=== PATIENT | female | born 1960 | race Native Hawaiian/Other Pacific Islander ===

== ENCOUNTER 2016-12-29 20:49 | Emergency (ER) | payer OTHER ==
--- NOTE | 2016-12-29 21:08 | ED Physician Documentation ---
PD HPI CHEST PAIN - Stated complaint Stated Complaint: CHEST PX - Chief complaint Chief Complaint: Cardiac - History obtained from History obtained from: Patient - History of Present Illness Timing - onset: How many days ago (2) Timing - onset during: Light activity Timing - duration: Days (2) Timing - details: Abrupt onset, Still present. No: Gradual onset Location: Right chest (and right side of neck) Radiation: Neck, Right upper extremity Improved by: No: Rest, Antacids Worsened by: Movement (right shoulder). No: Inspiration Associated symptoms: Feeling faint / dizzy. No: Shortness of air, Diaphoresis, Nausea, General Weakness, Palpitations, Cough Similar symptoms before: No diagnosis (had similar in past with normal labs and ECG.) Recently seen: Not recently seen Review of Systems Constitutional: denies: Fever, Chills Nose: denies: Rhinorrhea / runny nose, Congestion Throat: denies: Sore throat Cardiac: reports: Chest pain / pressure. denies: Palpitations, Pedal edema, Calf pain Respiratory: denies: Dyspnea, Cough, Wheezing GI: denies: Abdominal Pain, Nausea, Vomiting, Diarrhea : denies: Dysuria, Frequency Skin: denies: Rash, Lesions Musculoskeletal: denies: Neck pain, Back pain Neurologic: denies: Generalized weakness, Focal weakness, Numbness, Near syncope Endocrine: denies: Weight loss Immunocompromised: denies: Immunocompromised PD PAST MEDICAL HISTORY - Past Medical History Past Medical History: No Cardiovascular: Hypertension, High cholesterol Respiratory: Asthma Endocrine/Autoimmune: Type 2 diabetes Musculoskeletal: Osteoarthritis, Osteoporosis, Chronic back pain - Past Surgical History Past Surgical History: Yes General: Cholecystectomy - Present Medications Home Medications: Ambulatory Orders Medication Instructions Recorded Confirmed Aspirin [Aspir 81] 81 mg DAILY 11/25/13 11/25/13 Felodipine [Plendil] 5 mg DAILY 11/25/13 11/25/13 Lisinopril 20 mg DAILY 11/25/13 11/25/13 Simvastatin [Zocor] 20 mg DAILY 11/25/13 11/25/13 metFORMIN [Glucophage] 500 mg BID 11/25/13 11/25/13 Hydrocodone/Acetaminophen [[place] 1 each PO Q6H PRN #15 tablet 12/29/16 5-325 Tablet] - Allergies Allergies/Adverse Reactions: Allergies Allergy/AdvReac Type Severity Reaction Status Date / Time No Known Drug Allergies Allergy Verified 12/29/16 20:57 - Social History Does the pt smoke?: Yes Smoking Status: Current every day smoker Does the pt drink ETOH?: No Does the pt have substance abuse?: No - Immunizations Immunizations are current?: Yes - POLST Patient has POLST: No PD ED PE NORMAL - Vitals Vital signs reviewed: Yes - General General: Alert and oriented X 3, No acute distress, Well developed/nourished, Other (moderately obese) - HEENT HEENT: PERRL (nonicteric), Moist mucous membranes, Pharynx benign - Neck Neck: Supple, no meningeal sign, No adenopathy - Cardiac Cardiac: RRR, No murmur - Respiratory Respiratory: Clear bilaterally - Abdomen Abdomen: Soft, Non tender - Back Back: No CVA TTP - Derm Derm: Normal color, Warm and dry, No rash - Extremities Extremities: No deformity, No tenderness to palpate, No edema - Neuro Neuro: Alert and oriented X 3, No motor deficit, No sensory deficit, Normal speech - Psych Psych: Normal mood, Normal affect Results - Vitals Vitals: Oxygen O2 Source Room air - EKG (time done) 21:00 Rate: Rate (enter#) (56) Rhythm: Sinus bradycardia [place]: Normal Intervals: Normal [place] QRS: Normal Ischemia: No: ST elevation c/w ischemia, ST depression, Hyperacute T waves Compare to prior EKG: Old EKG unavailable - Labs Labs: Laboratory Tests 12/29/16 12/29/16 12/29/16 21:57 21:57 21:57 WBC 10.9 H RBC 5.17 Hgb 15.2 Hct 46.0 MCV 89.0 MCH 29.4 MCHC 33.0 RDW 13.4 Plt Count 320 MPV 8.0 Neut # 6.8 H Lymph # 3.0 [place] # 0.8 Eos # 0.3 Baso # 0.1 Absolute Nucleated RBC 0.00 Nucleated RBCs 0.0 Sodium 136 Potassium 4.1 Chloride 100 L Carbon Dioxide 27 Anion Gap 9.0 BUN 12 Creatinine 0.7 Estimated GFR (MDRD) 87 L Glucose 128 H Calcium 9.6 Total Bilirubin 1.0 AST 71 H ALT 79 H Alkaline Phosphatase 76 Troponin I < 0.04 B-Natriuretic Peptide Total Protein 8.0 Albumin 3.9 Globulin 4.1 Albumin/Globulin Ratio 1.0 Lipase 32 06/28/17 21:57 WBC RBC Hgb Hct MCV MCH MCHC RDW Plt Count MPV Neut # Lymph # [place] # Eos # Baso # Absolute Nucleated RBC Nucleated RBCs Sodium Potassium Chloride Carbon Dioxide Anion Gap BUN Creatinine Estimated GFR (MDRD) Glucose Calcium Total Bilirubin AST ALT Alkaline Phosphatase Troponin I B-Natriuretic Peptide 16 Total Protein Albumin Globulin Albumin/Globulin Ratio Lipase - Rads (name of study) chest Radiology: Prelim report reviewed, EMP read contemporaneously (normal) PD MEDICAL DECISION MAKING - ED course Complexity details: reviewed results, considered differential (no signs of signficant cause at this time. ), d/w patient Departure - Departure Disposition: 01 Home, Self Care Clinical Impression: Chest pain Qualifiers: Chest pain type: precordial pain Qualified Code(s): R07.2 - Precordial pain Condition: Stable Record reviewed to determine appropriate education?: Yes Instructions: ED Chest Pain NonCardiac Follow-Up: KANDIS Belcher [Provider Group] Prescriptions: Hydrocodone/Acetaminophen [[place] 5-325 Tablet] 1 each PO Q6H PRN #15 tablet PRN Reason: Pain Comments: Your tests do not show signs of serious cause, such as heart attack, heart failure, pneumonia, collapsed lung, etc. It has sounds of being esophagitis, given the discomfort swallowing, but could be muscular on that side of the chest /neck. Continue your Ranitidine twice daily. Antacids such as Maalox or Mylants periodically if it helps. Use Tylenol or hydrocodone as needed for pains. recheck if worsening or other symptoms, or if not improved over the next couple of days. Discharge Date/Time: 12/29/16 23:17
[2016-12-29] MEDS ORDERED: MAG HYDROX/AL HYDROX/SIMETH 30 ML UDC PO STA (21:45)
[2016-12-29] MEDS ORDERED: LIDOCAINE VISCOUS 2% 15 ML UDC MM STA (21:45)
[2016-12-29] MEDS ORDERED: HYDROcod/ACETAM 5/325 MG TABLET PO STA ×2 (21:46→22:55)
[2016-12-29] MEDS ORDERED: MAG HYDROX/AL HYDROX/SIMETH 30 ML UDC ONE (21:47)
[2016-12-29] MEDS ORDERED: HYDROcod/ACETAM 5/325 MG TABLET ONE ×2 (21:47→23:03)
[2016-12-29] MEDS ORDERED: LIDOCAINE VISCOUS 2% 15 ML UDC MM ONE (21:47)
[2016-12-29 22:06] LABS: BASOPHILS # (AUTO) 0.1 10^3/uL (0.0-0.1); BASOPHILS % (AUTO) 0.7 %; EOSINOPHILS # (AUTO) 0.3 10^3/uL (0.0-0.7); EOSINOPHILS % (AUTO) 3.1 %; HGB - HEMOGLOBIN 15.2 g/dL (12.0-16.0); LYMPHOCYTES % (AUTO) 27.2 %; MEAN CORPUSCULAR HEMOGLOBIN 29.4 pg (27.0-31.0); MONOCYTES # (AUTO) 0.8 10^3/uL (0.0-1.0); MONOCYTES % (AUTO) 7.1 %; NEUTROPHILS # (AUTO) 6.8 10^3/uL (1.5-6.6); NEUTROPHILS % (AUTO) 61.9 %; RED BLOOD COUNT 5.17 10^6/uL (4.20-5.40); RED CELL DISTRIBUTION WIDTH 13.4 % (12.0-15.0); UNCORRECTED WHITE BLOOD COUNT 10.9 x10^3/uL; WHITE BLOOD COUNT 10.9 x10^3/uL (4.8-10.8)
[2016-12-29 22:16] LABS: CALCIUM 9.6 mg/dL (8.5-10.3); CREATININE 0.7 mg/dL (0.4-1.0); POTASSIUM 4.1 mmol/L (3.5-5.0)
[2016-12-29] MEDS ORDERED: HYDROcod/ACET 5/325 Prepack 6 PO ONE ×2 (22:55→23:04)
--- NOTE | 2016-12-29 22:56 | XRAY Preliminary Report ---
Exam: XR Chest 2 View PA/LAT IMPRESSION: No acute intrathoracic plain film abnormality. [facility] SITE ID: [id number]
--- NOTE | 2016-12-29 22:58 | XRAY Report ---
EXAM: CHEST RADIOGRAPHY EXAM DATE: 12/29/2016 10:20 PM. CLINICAL HISTORY: Substernal chest pain for 2 days. COMPARISON: 11/25/2013. TECHNIQUE: 2 views. FINDINGS: Lungs/Pleura: No focal opacities evident. No pleural effusion. No pneumothorax. Normal volumes. Mediastinum: Borderline cardiomegaly. Other: None. IMPRESSION: No acute intrathoracic plain film abnormality. [facility] Referring Provider Line: [phone] SITE ID: [id number]
[2016-12-29 23:07] VITALS: BP 127/89
== END 2016-12-29 23:17 | disposition home or self-care (01) ==
LOC: ED 20:49
DX: R07.2 Precordial pain (principal); R13.10 Dysphagia, unspecified; I10 Essential (primary) hypertension; E11.9 Type 2 diabetes mellitus without complications; E78.00 Pure hypercholesterolemia, unspecified; F17.200 Nicotine dependence, unspecified, uncomplicated; R00.1 Bradycardia, unspecified; Z79.84 Long term (current) use of oral hypoglycemic drugs; Z79.82 Long term (current) use of aspirin
CPT/HCPCS: 36415; 71020; 80053; 83690; 83880; 84484; 85025; 93005; 99283; 99285; A9270

== ENCOUNTER 2017-09-30 08:20 | Emergency (ER) | payer OTHER ==
[2017-09-30 08:33] VITALS: BP 133/83
[2017-09-30] MEDS ORDERED: LIDOCAINE 1%-EPI 1:100000 20 ML MDV SUBQ STA (08:36)
[2017-09-30] MEDS ORDERED: cephALEXin 250 MG CAPSULE PO STA (08:37)
--- NOTE | 2017-09-30 09:03 | ED Physician Documentation ---
PD HPI SKIN - Stated complaint Stated Complaint: BOIL - Chief complaint Chief Complaint: Wound - History obtained from History obtained from: Patient - History of Present Illness Timing - onset: How many weeks ago (1) Timing - details: Gradual onset Location: Abdomen (Left lower groin crease.) Quality / character: Painful, Discolored, Swelling Similar symptoms before: Diagnosis (Similar symptoms 1 year ago, when an abscess spontaneously drained.) - Additional information Additional information: The patient is a 56-year-old female who presents with pain and swelling in the left lower abdomen in the groin crease. Her symptoms started one week ago and has been getting progressively worse. She denies fever, vomiting, or dysuria. She has a history of similar symptoms 1 year ago when an abscess spontaneously drained. Past medical history is significant for diabetes for which she takes metformin. She has no history of MRSA. Review of Systems Constitutional: denies: Fever Nose: denies: Congestion Cardiac: denies: Chest pain / pressure Respiratory: denies: Dyspnea, Cough GI: reports: Nausea. denies: Abdominal Pain, Vomiting : denies: Dysuria Skin: reports: Other (Abscess left groin.) Neurologic: denies: Headache PD PAST MEDICAL HISTORY - Past Medical History Cardiovascular: Hypertension, High cholesterol Respiratory: Asthma Endocrine/Autoimmune: Type 2 diabetes Musculoskeletal: Osteoarthritis, Osteoporosis, Chronic back pain - Past Surgical History Past Surgical History: Yes General: Cholecystectomy - Present Medications Home Medications: Ambulatory Orders Medication Instructions Recorded Confirmed Aspirin [Aspir 81] 81 mg DAILY 11/25/13 11/25/13 Felodipine [Plendil] 5 mg DAILY 11/25/13 11/25/13 Lisinopril 20 mg DAILY 11/25/13 11/25/13 Simvastatin [Zocor] 20 mg DAILY 11/25/13 11/25/13 metFORMIN [Glucophage] 500 mg BID 11/25/13 11/25/13 Hydrocodone/Acetaminophen [[place] 1 each PO Q6H PRN #15 tablet 12/29/16 5-325 Tablet] cephALEXin [Cephalexin] 500 mg PO TID #15 tablet 09/30/17 - Allergies Allergies/Adverse Reactions: Allergies Allergy/AdvReac Type Severity Reaction Status Date / Time No Known Drug Allergies Allergy Verified 12/29/16 20:57 - Social History Does the pt smoke?: Yes Smoking Status: Current every day smoker Does the pt drink ETOH?: No Does the pt have substance abuse?: No - Immunizations Immunizations are current?: Yes - POLST Patient has POLST: No PD ED PE NORMAL - Vitals Vital signs reviewed: Yes (Borderline hypertension initially.) - General General: Alert and oriented X 3, Other (Morbidly obese.) - HEENT HEENT: Atraumatic - Neck Neck: No adenopathy, No JVD - Cardiac Cardiac: RRR - Respiratory Respiratory: No respiratory distress, Clear bilaterally - Abdomen Abdomen: Soft, Non tender - Back Back: No CVA TTP - Derm Derm: Other (There is a large abscess noted in the left groin crease. It is fluctuant, and there is overlying erythema.) - Extremities Extremities: No tenderness to palpate - Neuro Neuro: Alert and oriented X 3, No motor deficit, Normal speech Results - Vitals Vitals: Oxygen O2 Source Room air - Labs Labs: Microbiology 09/30/17 08:55 Wound Culture - Preliminary Abscess NORMAL Skin Radha present in culture Laboratory Tests 09/30/17 08:45 POC Whole Bld Glucose 209 H Procedures - Abscess I&D (location) left lower abdominal/groin crease Preparation: Alcohol, Lidocaine 1%, With epi Incision: Incised with scalpel, Purulent drainage, Loculations broken, Irrigated , Packed, Culture obtained Other: Pt tolerated well, Dressing applied, Antibiotic prescribed PD MEDICAL DECISION MAKING - ED course Complexity details: reviewed results, re-evaluated patient, considered differential, d/w patient, d/w family ED course: The patient's presentation is significant for a large abscess in the left groin. There is overlying cellulitis. Her presentation does not suggest sepsis. Fingerstick blood sugar reveals hyperglycemia of 209. Treatment in the emergency department included incision and drainage after topical anesthesia using 1% lidocaine with epinephrine. In excess of 30 mL of pus was drained from the abscess. Culture swab was sent to the lab for microbiology. The abscess was irrigated and packed with Iodoform gauze. Cephalexin 500 mg administered orally. She is being discharged with prescription for cephalexin. I discussed with her and her expected course of illness, antibiotic treatment and outpatient follow-up, including recheck of the abscess in 2 days, as well as potentially worrisome signs or symptoms that should prompt sooner reevaluation in the emergency department. Departure - Departure Disposition: 01 Home, Self Care Clinical Impression: Abscess Diabetes mellitus with hyperglycemia Qualifiers: Diabetes mellitus type: type 2 Diabetes mellitus fpc insulin use: without fpc use Qualified Code(s): E11.65 - Type 2 diabetes mellitus with hyperglycemia Condition: Stable Instructions: ED Abscess IandD Follow-Up: RONALD CARRINGTON PA-C [Primary Care Provider] - Prescriptions: cephALEXin [Cephalexin] 500 mg PO TID #15 tablet Comments: Take cephalexin 3 times daily as prescribed. Change the dressing over the abscess site is often as necessary. Follow up with your primary physician or return to the emergency department in 3 days for recheck. Return to the emergency department if you develop increasing redness or swelling , fever with shaking chills, or otherwise worsening symptoms. Discharge Date/Time: 09/30/17 09:19
== END 2017-09-30 09:19 | disposition home or self-care (01) ==
LOC: ED 08:20
DX: L02.214 Cutaneous abscess of groin (principal); L03.314 Cellulitis of groin; E11.65 Type 2 diabetes mellitus with hyperglycemia; I10 Essential (primary) hypertension; E78.00 Pure hypercholesterolemia, unspecified; F17.200 Nicotine dependence, unspecified, uncomplicated; Z79.82 Long term (current) use of aspirin; Z79.84 Long term (current) use of oral hypoglycemic drugs
CPT/HCPCS: 10060; 87070; 87205; 99283; A9270

== ENCOUNTER 2018-01-25 09:58 | Emergency (ER) | payer OTHER ==
[2018-01-25 10:32] LABS: BASOPHILS % (AUTO) 0.4 %; EOSINOPHILS # (AUTO) 0.3 10^3/uL (0.0-0.7); EOSINOPHILS % (AUTO) 3.5 %; HGB - HEMOGLOBIN 14.9 g/dL (12.0-16.0); LYMPHOCYTES # (AUTO) 3.1 10^3/uL (1.5-3.5); MEAN CORPUSCULAR HEMOGLOBIN 30.1 pg (27.0-31.0); MEAN CORPUSCULAR HGB CONC 33.8 g/dL (32.0-36.0); MEAN CORPUSCULAR VOLUME 89.2 fL (81.0-99.0); MEAN PLATELET VOLUME 7.4 fL (7.9-10.8); MONOCYTES # (AUTO) 0.7 10^3/uL (0.0-1.0); MONOCYTES % (AUTO) 7.8 %; NEUTROPHILS # (AUTO) 4.9 10^3/uL (1.5-6.6); NEUTROPHILS % (AUTO) 54.3 %; PLT - PLATELET COUNT 332 10^3/uL (130-450); RED BLOOD COUNT 4.94 10^6/uL (4.20-5.40); RED CELL DISTRIBUTION WIDTH 13.5 % (12.0-15.0); WHITE BLOOD COUNT 9.1 x10^3/uL (4.8-10.8)
--- NOTE | 2018-01-25 10:40 | ED Physician Documentation ---
History of Present Illness - Stated complaint Stated Complaint: CHEST PAIN - Chief complaint Chief Complaint: General - Additonal information Additional information: hx from pt 57 f pmhx HTN HLD BM smoker to ED with chest pain X 5 days constant worse with moving no relieving factors mod severity quality - gripping from l ant chest to shoulder and neck no SOA but hurts to breath + cough no abd pain no leg swelling no travel no sick contacts Review of Systems Constitutional: denies: Fever, Chills Cardiac: reports: Chest pain / pressure Respiratory: reports: Cough. denies: Dyspnea GI: denies: Abdominal Pain, Nausea, Vomiting Musculoskeletal: denies: Extremity pain, Extremity swelling Endocrine: denies: Easy bruising / bleeding Immunocompromised: denies: Immunocompromised PD PAST MEDICAL HISTORY - Past Medical History Cardiovascular: Hypertension, High cholesterol Respiratory: Asthma Endocrine/Autoimmune: Type 2 diabetes Musculoskeletal: Osteoarthritis, Osteoporosis, Chronic back pain - Past Surgical History Past Surgical History: Yes General: Cholecystectomy - Present Medications Home Medications: Ambulatory Orders Medication Instructions Recorded Confirmed Aspirin [Aspir 81] 81 mg DAILY 11/25/13 11/25/13 Felodipine [Plendil] 5 mg DAILY 11/25/13 11/25/13 Lisinopril 20 mg DAILY 11/25/13 11/25/13 Simvastatin [Zocor] 20 mg DAILY 11/25/13 11/25/13 metFORMIN [Glucophage] 500 mg BID 11/25/13 11/25/13 Hydrocodone/Acetaminophen [[place] 1 each PO Q6H PRN #15 tablet 12/29/16 5-325 Tablet] cephALEXin [Cephalexin] 500 mg PO TID #15 tablet 09/30/17 Ibuprofen [Motrin] 400 mg PO Q6H PRN #30 tablet 01/25/18 Sucralfate 1 gm PO ACHS #120 tablet 01/25/18 raNITIdine [Zantac] 150 mg PO BID #60 tablet 01/25/18 - Allergies Allergies/Adverse Reactions: Allergies Allergy/AdvReac Type Severity Reaction Status Date / Time No Known Drug Allergies Allergy Verified 12/29/16 20:57 - Social History Does the pt smoke?: Yes Smoking Status: Current every day smoker Does the pt drink ETOH?: No Does the pt have substance abuse?: No - Immunizations Immunizations are current?: Yes - POLST Patient has POLST: No PD ED PE NORMAL - Vitals Vital signs reviewed: Yes - Neck Neck: Supple, no meningeal sign - Cardiac Cardiac: RRR - Respiratory Respiratory: No respiratory distress, Clear bilaterally - Abdomen Abdomen: Soft, Non tender - Derm Derm: Normal color - Extremities Extremities: No tenderness to palpate, Normal ROM s pain, No edema, No calf tenderness / cord - Neuro Neuro: Alert and oriented X 3 Results - Vitals Vitals: Vital Signs - 24 hr 01/25/18 01/25/18 01/25/18 10:18 11:21 12:54 Temperature 36.4 C L Heart Rate 76 81 70 Respiratory 14 23 20 Rate Blood Pressure 141/90 H 109/96 H 131/83 H O2 Saturation 97 97 98 01/25/18 14:42 Temperature 36.9 C Heart Rate 67 Respiratory 17 Rate Blood Pressure 110/75 O2 Saturation 95 Oxygen O2 Source Room air - EKG (time done) 1006 Rate: Rate (enter#) (75) Rhythm: NSR [place]: Normal Intervals: Normal [place] QRS: Normal Ischemia: Normal ST segments - Labs Labs: Laboratory Tests 01/25/18 01/25/18 01/25/18 10:20 10:20 10:20 WBC 9.1 RBC 4.94 Hgb 14.9 Hct 44.0 MCV 89.2 MCH 30.1 MCHC 33.8 RDW 13.5 Plt Count 332 MPV 7.4 L Neut # (Auto) 4.9 Lymph # (Auto) 3.1 [place] # (Auto) 0.7 Eos # (Auto) 0.3 Baso # (Auto) 0.0 Absolute Nucleated RBC 0.00 Nucleated RBC % 0.0 Sodium 135 Potassium 3.9 Chloride 100 L Carbon Dioxide 26 Anion Gap 9.0 BUN 14 Creatinine 0.7 Estimated GFR (MDRD) 86 L Glucose 156 H Calcium 9.1 Total Bilirubin 1.2 H AST 34 ALT 39 Alkaline Phosphatase 62 Troponin I < 0.04 Total Protein 7.5 Albumin 3.8 Globulin 3.7 Albumin/Globulin Ratio 1.0 Lipase 32 - Rads (name of study) CTA chest Radiology: See rad report (normal, no PE) PD MEDICAL DECISION MAKING - ED course ED course: 57 female with multiple risk factors for CAD to ED with 5 solid days of CP somewhat motion and resp related EKG and trop neg after 5 days essentially rules out ACS CTA neg for PE aneursym dissection infection as well despite high risk pt all work up is reassuring and feelt emergent causes of her CP have been ruled out after extensive MSE and she is safe for dc home bili noted but pts pain is left sided and she has no abd TTP - Sepsis Event Vital Signs: Vital Signs - 24 hr 01/25/18 01/25/18 01/25/18 10:18 11:21 12:54 Temperature 36.4 C L Heart Rate 76 81 70 Respiratory 14 23 20 Rate Blood Pressure 141/90 H 109/96 H 131/83 H O2 Saturation 97 97 98 01/25/18 14:42 Temperature 36.9 C Heart Rate 67 Respiratory 17 Rate Blood Pressure 110/75 O2 Saturation 95 Oxygen O2 Source Room air Departure - Departure Disposition: 01 Home, Self Care Clinical Impression: Chest pain Qualifiers: Chest pain type: unspecified Qualified Code(s): R07.9 - Chest pain, unspecified Condition: Good Instructions: ED Chest Pain Atypical Unkn Cause Follow-Up: RONALD CARRINGTON PA-C [Primary Care Provider] - Prescriptions: Ibuprofen [Motrin] 400 mg PO Q6H PRN #30 tablet PRN Reason: Pain raNITIdine [Zantac] 150 mg PO BID #60 tablet Sucralfate 1 gm PO ACHS #120 tablet Comments: Do not take metformin for 3 days after getting the IV contrast for CT All of the tests came back reassuring The EKG and labs do not suggest a heart attack - after 5 days of pain the lab test should be very accurate The xray and subsequent CT scan did not show any blood clots in your lung, no aneurysm or tear of the aorta, no infection or tumors, no collapse of the lung. I am not sure what is causing the chest pain But I feel we have ruled out the dangerous possible causes such as a heart attack or aneurysm or blood clot. It could be muscular in the chest wall, or acid reflux causing esophagus spasm among other possibilities I am not saying nothing is wrong But I think it is safe for you to go home I recommend motrin and tylenol for pain and a trial of zantac and carafate in case it is acid reflux. please follow up with your PMD for a recheck. Even though the heart tests in the ER are reassuring today, you have many many risk factors for heart disease - you need to stop smoking and should get a heart stress test which your PMD can arrange
[2018-01-25 10:54] LABS: ALBUMIN 3.8 g/dL (3.2-5.5); BILIRUBIN,TOTAL 1.2 mg/dL (0.2-1.0); CALCIUM 9.1 mg/dL (8.5-10.3); CREATININE 0.7 mg/dL (0.4-1.0); TOTAL PROTEIN 7.5 g/dL (6.7-8.2)
--- NOTE | 2018-01-25 11:06 | XRAY Report ---
Procedure Date: 01/25/2018 Accession Number: [id number] / [id number] Procedure: XR - Chest 2 View X-Ray CPT Code: 62858 FULL RESULT: EXAM: CHEST RADIOGRAPHY EXAM DATE: 01/25/2018 10:57 AM. CLINICAL HISTORY: Chest pain. COMPARISON: None. TECHNIQUE: 2 views. FINDINGS: Lungs/Pleura: No focal opacities evident. No pleural effusion. No pneumothorax. Normal volumes. Mediastinum: Heart and mediastinal contours are unremarkable. Other: None. IMPRESSION: Normal 2-view chest radiography. [facility]
[2018-01-25] MEDS ORDERED: ONDANSETRON 4 MG/2 ML VIAL IVP STA (13:52)
[2018-01-25] MEDS ORDERED: MORPHINE 2 MG/ML SYRINGE IVP STA (13:52)
[2018-01-25] MEDS ORDERED: IOPAMIDOL-300 100 ML VIAL ONE (14:12)
[2018-01-25] MEDS ORDERED: IOPAMIDOL-300 100 ML VIAL IVP ONE (14:28)
[2018-01-25 14:42] VITALS: BP 110/75
--- NOTE | 2018-01-25 14:46 | CT Report ---
Procedure Date: 01/25/2018 Accession Number: [id number] / [id number] Procedure: CT - Chest Angio (PE) CPT Code: FULL RESULT: EXAM: CT ANGIOGRAM CHEST. EXAM DATE: 01/25/2018 02:27 PM. CLINICAL HISTORY: Chest pain. Shortness of breath. Smoker. COMPARISON: None. TECHNIQUE: Routine helical imaging was performed through the chest in the pulmonary arterial phase. IV Contrast: ISOVUE 300 80 mL. Reconstructions: Coronal 3-D MIP reconstructions.Sagittal and coronal. In accordance with CT protocol optimization, one or more of the following dose reduction techniques were utilized for this exam: automated exposure control, adjustment of mA and/or KV based on patient size, or use of iterative reconstructive technique. FINDINGS: Pulmonary Arteries: Diagnostic quality: Adequate through the segmental arteries. No evidence for acute or chronic pulmonary emboli. RV/LV is within normal limits. There is no interventricular septal bowing. There is no reflux of contrast material in the IVC. Lungs/Pleura: No consolidation, nodules, or edema. No effusions or pneumothorax. Mediastinum: Normal. No cardiac enlargement or adenopathy. Thoracic Aorta: Unremarkable. Upper Abdomen: Unremarkable. Other: None. IMPRESSION: Normal pulmonary CT angiogram. No pulmonary emboli. [facility]
== END 2018-01-25 16:09 | disposition home or self-care (01) ==
LOC: ED 09:58
DX: R07.9 Chest pain, unspecified (principal); I10 Essential (primary) hypertension; E11.9 Type 2 diabetes mellitus without complications; Z79.84 Long term (current) use of oral hypoglycemic drugs; Z79.82 Long term (current) use of aspirin; F17.200 Nicotine dependence, unspecified, uncomplicated
CPT/HCPCS: 36415; 71046; 71275; 80053; 83690; 84484; 85025; 93005; 96374; 96375; 99283; J2270; Q9967

== ENCOUNTER 2021-08-08 11:33 | Emergency (ER) | payer OTHER ==
--- NOTE | 2021-08-08 11:48 | ED Physician Documentation ---
History of Present Illness - Stated complaint Stated Complaint: DIZZY - Additonal information Additional information: 60-year-old female who carries a history of morbid obesity, hypertension and diabetes presents the emergency department for evaluation of dizziness. She reports that she woke up yesterday morning and had sensation of dizziness somewhat like the room spinning but not exactly. It lasted a few minutes and then went away. But it occurred again later in the afternoon, this time lasting a few seconds. She reports nausea, like she was car sick. She is also describing some mild left upper chest discomfort as well as a posterior headache. Some nausea but no vomiting. No diaphoresis. No radiation of her pain. Patient is short of breath with ambulation but states that this is not usual for her. She is not hypoxic. No cough or fevers. She is morbidly obese. Social: Daily tobacco user Meds: Simvastatin felodipine, losartan, daily aspirin, Metformin, Trulicity Review of Systems Constitutional: denies: Fever, Chills Eyes: denies: Loss of vision Ears: reports: Reviewed and negative Nose: reports: Reviewed and negative Throat: reports: Reviewed and negative Cardiac: reports: Chest pain / pressure. denies: Palpitations, Pedal edema, Calf pain Respiratory: reports: Dyspnea. denies: Cough, Hemoptysis, Wheezing GI: reports: Reviewed and negative : reports: Reviewed and negative Skin: reports: Reviewed and negative Musculoskeletal: denies: Neck pain, Back pain, Extremity pain Neurologic: reports: Headache, Other (dizzy). denies: Generalized weakness, Focal weakness, Syncope, Seizure, Confused Psychiatric: reports: Reviewed and negative PD PAST MEDICAL HISTORY - Past Medical History Cardiovascular: Hypertension, High cholesterol Respiratory: Asthma Endocrine/Autoimmune: Type 2 diabetes Musculoskeletal: Osteoarthritis, Osteoporosis, Chronic back pain - Past Surgical History Past Surgical History: Yes General: Cholecystectomy - Present Medications Home Medications: Ambulatory Orders Medication Instructions Recorded Confirmed Aspirin [Aspir 81] 81 mg DAILY 11/25/13 11/25/13 Felodipine [Plendil] 5 mg DAILY 11/25/13 11/25/13 Lisinopril 20 mg DAILY 11/25/13 11/25/13 Simvastatin [Zocor] 20 mg DAILY 11/25/13 11/25/13 metFORMIN [Glucophage] 500 mg BID 11/25/13 11/25/13 Hydrocodone/Acetaminophen [[place] 1 each PO Q6H PRN #15 tablet 12/29/16 5-325 Tablet] cephALEXin [Cephalexin] 500 mg PO TID #15 tablet 09/30/17 Ibuprofen [Motrin] 400 mg PO Q6H PRN #30 tablet 01/25/18 Sucralfate 1 gm PO ACHS #120 tablet 01/25/18 raNITIdine [Zantac] 150 mg PO BID #60 tablet 01/25/18 Meclizine [Antivert] 25 mg PO Q6H #30 tablet 08/08/21 - Allergies Allergies/Adverse Reactions: Allergies Allergy/AdvReac Type Severity Reaction Status Date / Time No Known Drug Allergies Allergy Verified 12/29/16 20:57 - Social History Does the pt smoke?: Yes Smoking Status: Current every day smoker Does the pt drink ETOH?: No Does the pt have substance abuse?: No - Immunizations Immunizations are current?: Yes - POLST Patient has POLST: No PD ED PE EXPANDED - General General: Alert, Well developed/nourished, Other (morbidely obese) - HEENT HEENT: Atraumatic, PERRL, Ears normal - Eyes Eyes: PERRL, EOMI - Neck Neck: Supple w/out meningeal sx. No: Adenopathy - Cardiac Cardiac: Regular Rate, Radial strong equal, Pedal strong equal, Cap refill < 2 sec. No: Murmur Present - Respiratory Respiratory: Clear to ausultation carlos, Other (Tachypnea and mild shortness of breath after ambulation which resolves with rest.). No: Distress - Abdomen Abdomen: Normal Bowel sounds. No: Tender to palpation - Derm Derm: Normal color, Warm and dry. No: Rash - Extremities Extremities: Normal, Pedal Pulses Present. No: Deformity, Tenderness, Swelling, Pedal edema bilateral - Neuro Neuro: Alert and Oriented X 3, CNII-XII intact, Cerebellar nl, Normal gait, Normal finger nose, Normal speech - GCS Eye Opening: Spontaneous Motor: Obeys Commands Verbal: Oriented Total: 15 Results - Vitals Vitals: Vital Signs - 24 hr 08/08/21 08/08/21 08/08/21 11:40 12:11 12:31 Temperature 37.2 C Heart Rate 94 84 Heart Rate [ 85 Supine] Respiratory 22 20 Rate Blood Pressure 148/98 H 149/78 H Blood Pressure 133/87 H [Supine] O2 Saturation 98 97 Oxygen O2 Source Room air - EKG (time done) 1146 Rate: Rate (enter#) (90) Rhythm: NSR [place]: Normal Intervals: Normal ND. No: Prolonged QT QRS: Normal Ischemia: Normal ST segments Compare to prior EKG: Old EKG unavailable Computer interpretation: Agree with computer - Labs Labs: Laboratory Tests 08/08/21 08/08/21 08/08/21 11:53 11:53 11:53 WBC 8.9 RBC 5.10 Hgb 15.1 Hct 45.5 MCV 89.2 MCH 29.6 MCHC 33.2 RDW 13.0 Plt Count 325 MPV 9.4 Neut # (Auto) 5.4 Lymph # (Auto) 2.8 [place] # (Auto) 0.4 Eos # (Auto) 0.2 Baso # (Auto) 0.0 Absolute Nucleated RBC 0.00 Nucleated RBC % 0.0 PT 12.6 INR 1.1 Sodium 136 Potassium 4.0 Chloride 99 L Carbon Dioxide 26 Anion Gap 11.0 BUN 17 Creatinine 0.8 Estimated GFR (MDRD) 73 L Glucose 247 H Calcium 9.0 Total Bilirubin 1.4 H AST 46 H ALT 52 Alkaline Phosphatase 70 Troponin I High Sens Total Protein 7.4 Albumin 4.0 Globulin 3.4 Albumin/Globulin Ratio 1.2 Lipase 47 08/08/21 11:53 WBC RBC Hgb Hct MCV MCH MCHC RDW Plt Count MPV Neut # (Auto) Lymph # (Auto) [place] # (Auto) Eos # (Auto) Baso # (Auto) Absolute Nucleated RBC Nucleated RBC % PT INR Sodium Potassium Chloride Carbon Dioxide Anion Gap BUN Creatinine Estimated GFR (MDRD) Glucose Calcium Total Bilirubin AST ALT Alkaline Phosphatase Troponin I High Sens 3.4 Total Protein Albumin Globulin Albumin/Globulin Ratio Lipase - Rads (name of study) CXR Radiology: EMP read contemporaneously (No acute cardiopulmonary process.) PD MEDICAL DECISION MAKING - ED course Complexity details: reviewed results, re-evaluated patient, considered differential, d/w patient ED course: 6-year-old female who carries a history of morbid obesity, hypertension and poorly controlled diabetes who is an active daily tabacco user, presents the emergency department for evaluation of left-sided chest discomfort as well as some very intermittent dizziness and vertigo that she noticed over the last 48 hours. Sometimes it was with position changes. It lasted just a few seconds to a few minutes. Describes a sensation of like being carsick. She on presentation has a nonfocal neurological exam. Normal cerebellar exam and gait. Her screening EKG is nonischemic and essentially unchanged from 2018. Screening labs were unremarkable with the exception of a blood glucose of 247. High-sensitivity troponin was negative. Chest x-ray without acute focal opacity findings of congestive heart failure cardiomegaly. Orthostatics were negative. Clinically the patient does not appear to be having ACS/NSTEMI, CVA. I did spend some time at the bedside discussing with her risk factors for coronary artery disease and CVA. We discussed that moving forward moderate weight loss and tobacco cessation is critical as well is improved blood glucose management. Patient would likely benefit from an outpatient echocardiogram and stress test for further evaluation of her symptoms. Emergent return precautions were discussed for concerns of chest pain, sudden severe shortness of air, leg swelling fainting episodes or focal neurological deficits. Departure - Departure Disposition: 01 Home, Self Care Clinical Impression: Dizzy spells, Chest discomfort, Poorly controlled diabetes mellitus Condition: Stable Record reviewed to determine appropriate education?: Yes Instructions: ED Dizziness UKO Prescriptions: Meclizine [Antivert] 25 mg PO Q6H #30 tablet Comments: Concha you are seen in the emergency department today for dizziness as well as some chest discomfort. You do have some moderate risk factors for heart disease and stroke that include obesity, poorly controlled diabetes, hypertension and tobacco use. However your screening chest x-ray, EKG and labs today are all essentially normal with the exception of an elevated blood sugar. You do not appear to be having a heart attack or a stroke. I have sent a prescription for some meclizine which is a motion sickness tablet to the [facility] in [place]. You can use this 3-4 times a day if you are feeling nauseated and have a sensation of dizziness. Moving forward is going to be important that you follow-up with your primary care provider. You would benefit from an outpatient echocardiogram and stress test. It is also going to be important that you achieve better control of your blood glucose. The goal should be an A1c less than 7%. I also recommend moderate weight loss as well as tobacco cessation. If at any point you develop sudden severe chest pain, have any fainting spells, uncontrolled vomiting, severe shortness of breath, slurred speech, facial droop or weakness in one of your arms or legs or bilateral leg swelling then you are to return immediately to the ER for second evaluation.
[2021-08-08 12:01] LABS: BASOPHILS % (AUTO) 0.4 %; EOSINOPHILS # (AUTO) 0.2 10^3/uL (0.0-0.7); EOSINOPHILS % (AUTO) 2.7 %; HCT - HEMATOCRIT 45.5 % (37.0-47.0); HGB - HEMOGLOBIN 15.1 g/dL (12.0-16.0); LYMPHOCYTES # (AUTO) 2.8 10^3/uL (1.5-3.5); LYMPHOCYTES % (AUTO) 31.4 %; MEAN CORPUSCULAR HEMOGLOBIN 29.6 pg (27.0-31.0); MEAN CORPUSCULAR HGB CONC 33.2 g/dL (32.0-36.0); MEAN CORPUSCULAR VOLUME 89.2 fL (81.0-99.0); MEAN PLATELET VOLUME 9.4 fL (7.9-10.8); MONOCYTES # (AUTO) 0.4 10^3/uL (0.0-1.0); MONOCYTES % (AUTO) 4.9 %; NEUTROPHILS # (AUTO) 5.4 10^3/uL (1.5-6.6); NEUTROPHILS % (AUTO) 60.3 %; PLT - PLATELET COUNT 325 10^3/uL (130-450); WHITE BLOOD COUNT 8.9 x10^3/uL (4.8-10.8)
[2021-08-08 12:05] LABS: INR 1.1 (0.8-1.2); PT - PROTHROMBIN TIME 12.6 secs (9.9-12.6)
[2021-08-08 12:16] LABS: ALBUMIN/GLOBULIN RATIO 1.2 (1.0-2.2); BILIRUBIN,TOTAL 1.4 mg/dL (0.2-1.0); CREATININE 0.8 mg/dL (0.4-1.0); TOTAL PROTEIN 7.4 g/dL (6.7-8.2)
[2021-08-08] MEDS ORDERED: SODIUM CHLORIDE 0.9% 1,000 ML IV STA (12:20)
--- NOTE | 2021-08-08 12:28 | XRAY Report ---
PROCEDURE: Chest 1 View X-Ray INDICATIONS: Chest Pain TECHNIQUE: One view of the chest was acquired. COMPARISON: Chest radiograph 01/25/2018 FINDINGS: Surgical changes and devices: None. Lungs and pleura: No pleural effusions or pneumothorax. Lungs are clear. Mediastinum: Mediastinal contours appear normal. Heart size is normal. Bones and chest wall: No suspicious bony lesions. Overlying soft tissues appear unremarkable. IMPRESSION: No acute cardiopulmonary abnormality. Reviewed by: Maynor Mayers MD on 08/08/2021 12:26 PM PST Approved by: Maynor Mayers MD on 08/08/2021 12:26 PM [facility] Station ID: [id number]
[2021-08-08 13:04] VITALS: BP 142/89
== END 2021-08-08 13:03 | disposition home or self-care (01) ==
LOC: ED 11:33
DX: R42 Dizziness and giddiness (principal); R07.9 Chest pain, unspecified; E11.65 Type 2 diabetes mellitus with hyperglycemia; Z79.84 Long term (current) use of oral hypoglycemic drugs; E66.01 Morbid (severe) obesity due to excess calories; Z68.43 Body mass index [BMI] 50.0-59.9, adult; F17.200 Nicotine dependence, unspecified, uncomplicated
CPT/HCPCS: 36415; 80053; 83690; 84484; 85025; 85610; 93005; 99284